=== PATIENT | male | born 1975 | race Caucasian/White ===

== ENCOUNTER 2018-03-26 23:13 | Emergency (ER) | payer OTHER ==
[~2018-03-26 23:13] MED LIST: AZI250 PO; DICL-195 PO; GUAI480S48 PO; IBU800 PO; NO ROUTINE MEDS; OXYC-865 PO
--- NOTE | 2018-03-26 23:24 | ER Report ---
History and Physical Time Seen By MD: 23:22 HPI/ROS CHIEF COMPLAINT: testicular pain HISTORY OF PRESENT ILLNESS: This is a 42 year old male. He is having severe testicular pain, sudden onset, right side, was lying down trying to go to sleep. Nothing makes the pain worse, but nothing makes it better as well. Feels like he needs to urinate, but cannot go. He has had normal bowels. No history of urinary, kidney or testicular problems in the past. No fevers or chills. No abdominal pain. No shortness of breath or chest pain. Allergies: Coded Allergies: No Known Allergies (Verified Allergy, Mild, 12/12/07) Home Meds Active Scripts Ondansetron (ZOFRAN ODT) 4 Mg Tab.rapdis, 4 MG PO Q6H Y for NAUSEA/VOMITING, # 20 TAB.RUDY 0 Refills Prov:KEMAR MARSH MD 03/27/18 Ketorolac Tromethamine (KETOROLAC TROMETHAMINE) 10 Mg Tab, 10 MG PO Q6H Y for PAIN, #12 TAB 0 Refills Prov:KEMAR MARSH MD 03/27/18 Hydrocodone Bit/Acetaminophen (HYDROCODON-ACETAMINOPHEN 5-325) 1 Each Tablet, 1 EACH PO Q4H Y for PAIN, #12 TAB 0 Refills Prov:KEMAR MARSH MD 03/27/18 Tamsulosin Hcl (FLOMAX) 0.4 Mg Cap.er.24h, 0.4 MG PO QDAY, #14 CAP 0 Refills Prov:KEMAR MARSH MD 03/27/18 Reported Medications Cholecalciferol (Vitamin D3) (VITAMIN D3) 1,000 Unit Tablet, 5000 UNIT PO, TAB 03/26/18 [No Routine Meds] No Conflict Check 12/12/07 Discontinued Scripts Diclofenac Sodium (DICLOFENAC SODIUM) 75 Mg Tablet.dr, 75 MG PO TID, #30 TAB TAKE 1 TABLET BY MOUTH 3 TIMES A DAY Prov:SHIRLEY ROGERS MD 10/18/13 Oxycodone Hcl/Acetaminophen (PERCOCET 5-325 MG TABLET) 1 Each Tablet, 1 EACH PO Q4-6H Y for pain, #30 Prov:SHIRLEY ROGERS MD 10/18/13 Reviewed Nurses Notes: Yes Hx Smoking: Yes Hx Substance Use Disorder: No Hx Alcohol Use: No Constitutional Vital Sign - Last 24 Hours 03/26/18 03/26/18 03/27/18 03/27/18 23:20 23:22 00:06 00:13 Temp 98.4 Pulse 70 82 Resp 18 B/P (MAP) 137/117 (124) 137/117 164/126 (139) Pulse Ox 97 90 O2 Delivery Room Air 03/27/18 03/27/18 03/27/18 03/27/18 00:18 00:30 00:48 01:00 Pulse ??? B/P (MAP) 161/103 (122) 173/111 (131) Pulse Ox 96 91 03/27/18 03/27/18 03/27/18 01:30 02:00 02:05 Pulse 76 B/P (MAP) 158/103 (121) 163/111 (128) Pulse Ox 98 Physical Exam General Appearance: The patient is alert. Acute distress due to pain. Eyes: Pupils are equal, round. No pallor, injection or icterus. ENT: Mucous membranes are moist. Respiratory: Lungs are clear to auscultation. Cardiovascular: Regular rate and rhythm. No murmurs, gallops or rubs. Gastrointestinal: Abdomen is soft, nontender. Nondistended. Normal active bowel sounds. No costovertebral angle tenderness with percussion. Genitourinary: Normal testicles, right side seems to ride a little high. No tenderness with palpation. No evidence of bulging either direct or indirect. No masses. Neurological: Alert and oriented x3. No focal neurologic deficits Skin: Warm and dry. No rashes. DIFFERENTIAL DIAGNOSIS: After history and physical exam, differential diagnosis was considered for testicular pain on the right side, could be torsion or other testicular problem or possible kidney stone or infectious process. Medical Decision Making Data Points Result Diagram: 03/26/18 2334 03/26/18 2334 Laboratory Hematology Test 03/26/18 23:34 03/27/18 00:09 Red Blood Count 4.69 M/uL (4.00-5.60) Mean Corpuscular Volume 89.3 fL (80.0-96.0) Mean Corpuscular Hemoglobin 31.7 pg (26.0-33.0) Mean Corpuscular Hemoglobin Concent 35.5 g/dL (32.0-36.0) Red Cell Distribution Width 13.2 % (11.5-14.5) Mean Platelet Volume 7.8 fL (7.2-11.1) Neutrophils (%) (Auto) 63.8 % (39.4-72.5) Lymphocytes (%) (Auto) 24.2 % (17.6-49.6) Monocytes (%) (Auto) 9.7 % (4.1-12.4) Eosinophils (%) (Auto) 1.7 % (0.4-6.7) Basophils (%) (Auto) 0.6 % (0.3-1.4) Nucleated RBC Relative Count (auto) 0.0 /100WBC Neutrophils # (Auto) 4.5 K/uL (2.0-7.4) Lymphocytes # (Auto) 1.7 K/uL (1.3-3.6) Monocytes # (Auto) 0.7 K/uL (0.3-1.0) Eosinophils # (Auto) 0.1 K/uL (0.0-0.5) Basophils # (Auto) 0.0 K/uL (0.0-0.1) Nucleated RBC Absolute Count (auto) 0.00 K/uL Erythrocyte Sedimentation Rate 3 mm/HOUR (0-15) Sodium Level 142 mmol/L (137-145) Potassium Level 4.0 mmol/L (3.5-5.0) Chloride Level 102 mmol/L (98-107) Carbon Dioxide Level 28 mmol/L (22-30) Blood Urea Nitrogen 19 mg/dl (9-21) Creatinine 1.30 mg/dl (0.66-1.25) Glomerular Filtration Rate Calc > 60.0 Random Glucose 149 mg/dl (75-110) Calcium Level 10.6 mg/dl (8.4-10.2) Total Bilirubin 0.4 mg/dl (0.2-1.3) Aspartate Amino Transf (AST/SGOT) 26 U/L (0-35) Alanine Aminotransferase (ALT/SGPT) 57 U/L (0-56) Alkaline Phosphatase 70 U/L (0-126) C-Reactive Protein 0.7 mg/dl (<1.0) Total Protein 7.5 gm/dl (6.3-8.2) Albumin 4.3 g/dl (3.5-5.0) Urine Color Yellow Urine Clarity Slightly-cloudy Urine pH 5.0 pH (4.8-9.5) Urine Specific Gillespie 1.026 Urine Protein Negative mg/dL (NEGATIVE) Urine Glucose (UA) Negative mg/dL (NEGATIVE) Urine Ketones Negative mg/dL (NEGATIVE) Urine Blood Small (NEGATIVE) Urine Nitrite Negative (NEGATIVE) Urine Bilirubin Negative (NEGATIVE) Urine Urobilinogen Negative mg/dL (0.2-1.9) Urine Leukocyte Esterase Negative (NEGATIVE) Urine RBC 14 /HPF (0-2/HPF) Urine WBC 5 /HPF (0-5/HPF) Urine Squamous Epithelial Cells Moderate /LPF (</=FEW) Urine Bacteria Negative /HPF (NONE-FEW) Urine Mucus Few /HPF (NONE-FEW) Chemistry Test 03/26/18 23:34 03/27/18 00:09 White Blood Count 7.0 k/uL (4.5-11.0) Red Blood Count 4.69 M/uL (4.00-5.60) Hemoglobin 14.9 g/dL (14.0-18.0) Hematocrit 41.9 % (42.0-52.0) Mean Corpuscular Volume 89.3 fL (80.0-96.0) Mean Corpuscular Hemoglobin 31.7 pg (26.0-33.0) Mean Corpuscular Hemoglobin Concent 35.5 g/dL (32.0-36.0) Red Cell Distribution Width 13.2 % (11.5-14.5) Platelet Count 166 K/uL (150-450) Mean Platelet Volume 7.8 fL (7.2-11.1) Neutrophils (%) (Auto) 63.8 % (39.4-72.5) Lymphocytes (%) (Auto) 24.2 % (17.6-49.6) Monocytes (%) (Auto) 9.7 % (4.1-12.4) Eosinophils (%) (Auto) 1.7 % (0.4-6.7) Basophils (%) (Auto) 0.6 % (0.3-1.4) Nucleated RBC Relative Count (auto) 0.0 /100WBC Neutrophils # (Auto) 4.5 K/uL (2.0-7.4) Lymphocytes # (Auto) 1.7 K/uL (1.3-3.6) Monocytes # (Auto) 0.7 K/uL (0.3-1.0) Eosinophils # (Auto) 0.1 K/uL (0.0-0.5) Basophils # (Auto) 0.0 K/uL (0.0-0.1) Nucleated RBC Absolute Count (auto) 0.00 K/uL Erythrocyte Sedimentation Rate 3 mm/HOUR (0-15) Glomerular Filtration Rate Calc > 60.0 Calcium Level 10.6 mg/dl (8.4-10.2) Total Bilirubin 0.4 mg/dl (0.2-1.3) Aspartate Amino Transf (AST/SGOT) 26 U/L (0-35) Alanine Aminotransferase (ALT/SGPT) 57 U/L (0-56) Alkaline Phosphatase 70 U/L (0-126) C-Reactive Protein 0.7 mg/dl (<1.0) Total Protein 7.5 gm/dl (6.3-8.2) Albumin 4.3 g/dl (3.5-5.0) Urine Color Yellow Urine Clarity Slightly-cloudy Urine pH 5.0 pH (4.8-9.5) Urine Specific Gillespie 1.026 Urine Protein Negative mg/dL (NEGATIVE) Urine Glucose (UA) Negative mg/dL (NEGATIVE) Urine Ketones Negative mg/dL (NEGATIVE) Urine Blood Small (NEGATIVE) Urine Nitrite Negative (NEGATIVE) Urine Bilirubin Negative (NEGATIVE) Urine Urobilinogen Negative mg/dL (0.2-1.9) Urine Leukocyte Esterase Negative (NEGATIVE) Urine RBC 14 /HPF (0-2/HPF) Urine WBC 5 /HPF (0-5/HPF) Urine Squamous Epithelial Cells Moderate /LPF (</=FEW) Urine Bacteria Negative /HPF (NONE-FEW) Urine Mucus Few /HPF (NONE-FEW) Urinalysis Test 03/27/18 00:09 Urine Color Yellow Urine Clarity Slightly-cloudy Urine pH 5.0 pH (4.8-9.5) Urine Specific Gillespie 1.026 Urine Protein Negative mg/dL (NEGATIVE) Urine Glucose (UA) Negative mg/dL (NEGATIVE) Urine Ketones Negative mg/dL (NEGATIVE) Urine Blood Small (NEGATIVE) Urine Nitrite Negative (NEGATIVE) Urine Bilirubin Negative (NEGATIVE) Urine Urobilinogen Negative mg/dL (0.2-1.9) Urine Leukocyte Esterase Negative (NEGATIVE) Urine RBC 14 /HPF (0-2/HPF) Urine WBC 5 /HPF (0-5/HPF) Urine Squamous Epithelial Cells Moderate /LPF (</=FEW) Urine Bacteria Negative /HPF (NONE-FEW) Urine Mucus Few /HPF (NONE-FEW) EKG/Imaging Imaging Ultrasound of the scrotum and testicles: Indication: Right-sided pain. Technique: Duplex Doppler and color Doppler imaging were performed. Comparison: None. Testicles: The right testicle measures 4.1 x 3.0 x 2.6 cm. The left testicle measures 4.6 x 2.8 x 2.2 cm. There is no evidence of testicular nodule, calcification, or cyst. Doppler images demonstrate normal flow signals. There are no signs of testicular torsion. Epididymal structures: A small cyst is present in the right epididymal head. The epididymal structures are otherwise unremarkable. Varicocele: A varicocele is present on the left. Hydrocele: None seen. Impression: No acute findings. There are no signs of testicular torsion. Report Dictated By: Kyle Valerio MD at 03/27/2018 12:16 AM COMPUTED TOMOGRAPHY ABDOMEN AND PELVIS WITH INTRAVENOUS CONTRAST DATE OF EXAM: 03/27/2018 12:47 AM INDICATION: Testicular pain. COMPARISON: Scrotal ultrasound 03/26/2018. TECHNIQUE: Contrast enhanced abdomen and pelvis CT performed during the injection of 75 ml of Isovue 370. Sagittal and coronal reconstructions were performed. One of the following dose optimization techniques was utilized in the performance of this exam: Automated exposure control; adjustment of the mA and/or kV according to the patient's size; or use of an iterative reconstruction technique. Specific details can be referenced in the facility's radiology CT exam operational policy. FINDINGS: Lung bases: Mild atelectasis. Liver and hepatic vasculature: No acute abnormality or focal lesion. Gallbladder and bile ducts: Normal. Spleen: Mildly enlarged. Pancreas: Normal. Adrenals: Normal. Kidneys, ureters and bladder: There is a 2 mm calculus at the right ureterovesicular junction with associated mild hydronephrosis/hydroureter and delayed nephrogram. Left kidney and ureter are grossly normal. Urinary bladder is decompressed. Retroperitoneum and aorta: Normal. GI tract, mesentery and peritoneum: No acute abnormality. Normal appendix. Prostate and seminal vesicles: Normal. Bones and soft tissues: No acute abnormality or suspicious lesion. Small fat- containing left inguinal hernia. IMPRESSION: 2 mm calculus at the right ureterovesicular junction with associated mild hydronephrosis/hydroureter and delayed nephrogram. Report Dictated By: Angel Melchor MD at 03/27/2018 1:35 AM ED Course/Re-evaluation Clinical Indication for ER IV: Hydration, IV Access ED Course Initial evaluation was done. Testicular ultrasound ordered. Morphine 4mg IV given for pain. Zofran for nausea. 1000cc NS given. Ultrasound negative. CT scan done. Toradol 30mg IV. Pain improved, but not completely gone. CT shows 2mm stone at UVJ. Discussed with patient. See instructions below. Decision to Disposition Date: Mar 27, 2018 Decision to Disposition Time: 02:11 Depart Departure Latest Vital Signs Vital Signs Date Time Temp Pulse Resp B/P (MAP) Pulse Ox O2 Delivery O2 Flow Rate FiO2 03/27/18 02:05 76 98 03/27/18 02:00 163/111 (128) 03/26/18 23:22 98.4 18 Room Air Impression: Primary Impression: Kidney stone Condition: Improved Disposition: HOME OR SELF-CARE New Scripts Ondansetron (ZOFRAN ODT) 4 Mg Tab.rapdis 4 MG PO Q6H Y for NAUSEA/VOMITING, #20 TAB.RUDY 0 Refills Prov: KEMAR MARSH MD 03/27/18 Ketorolac Tromethamine (KETOROLAC TROMETHAMINE) 10 Mg Tab 10 MG PO Q6H Y for PAIN, #12 TAB 0 Refills Prov: KEMAR MARSH MD 03/27/18 Hydrocodone Bit/Acetaminophen (HYDROCODON-ACETAMINOPHEN 5-325) 1 Each Tablet 1 EACH PO Q4H Y for PAIN, #12 TAB 0 Refills Prov: KEMAR MARSH MD 03/27/18 Tamsulosin Hcl (FLOMAX) 0.4 Mg Cap.er.24h 0.4 MG PO QDAY, #14 CAP 0 Refills Prov: KEMAR MARSH MD 03/27/18 Patient Instructions: Kidney Stones (ED) Additional Instructions: Rest and increase fluid intake. For pain you can use: Toradol 10mg, one every 6 hours as needed for pain. Lortab 5/325, take 1-2 every 4 hours as needed for pain. For Nausea: Zofran 4mg, one every 4-6 hours as needed for nausea. To help the stone to pass and to help decrease swelling and pain in the urinary system after the stone passes, we recommend using Flomax 0.4mg one daily for the next couple of weeks. KEMAR MARSH MD Mar 26, 2018 23:24
[2018-03-26] MEDS ORDERED: CHOL10005 PO (23:29)
[2018-03-26] MEDS ORDERED: NS(*) 0.9% 1000 ML BAG 1,000 ML IV ONE (23:30)
[2018-03-26] MEDS ORDERED: MORPHINE 4 MG/ML SDV IVP ONE (23:30)
[2018-03-26] MEDS ORDERED: ONDANSETRON 4 MG/2 ML VIAL IVP ONE (23:30)
[2018-03-26 23:42] LABS: PLATELET COUNT, AUTOMATED 166 K/uL (150-450)
--- NOTE | 2018-03-27 00:25 | RADIOLOGY IMAGING REPORT ---
FACILITY[place] [facility] [place] NAME: Tomas Alcocer : 1975 MR: [id number] V: [id number] EXAM DATE: ORDERING PHYSICIAN: KEMAR MARSH TECHNOLOGIST: Location: [facility] - [place] Patient: Tomas Alcocer : 1975 Visit/Account:[id number] Date of Sevice: 03/26/2018 Ultrasound of the scrotum and testicles: Indication: Right-sided pain. Technique: Duplex Doppler and color Doppler imaging were performed. Comparison: None. Testicles: The right testicle measures 4.1 x 3.0 x 2.6 cm. The left testicle measures 4.6 x 2.8 x 2.2 cm. There is no evidence of testicular nodule, calcification, or cyst. Doppler images demonstrate no rmal flow signals. There are no signs of testicular torsion. Epididymal structures: A small cyst is present in the right epididymal head. The epididymal structure s are otherwise unremarkable. Varicocele: A varicocele is present on the left. Hydrocele: None seen. Impression: No acute findings. There are no signs of testicular torsion. Report Dictated By: Kyle Valerio MD at 03/27/2018 12:16 AM Report E-Signed By: Kyle Valerio MD at 03/27/2018 12:20 AM WSN:[id number]
[2018-03-27] MEDS ORDERED: KETOROLAC 30 MG/ML VIAL IVP ONE (00:50)
[2018-03-27] MEDS ORDERED: IOPAMIDOL 76% 75 ML INFUS BTL 75 ML ONE (01:02)
--- NOTE | 2018-03-27 01:47 | RADIOLOGY IMAGING REPORT ---
FAC[place] [facility] [place] NAME: Tomas Alcocer : 1975 MR: [id number] V: [id number] EXAM DATE: ORDERING PHYSICIAN: KEMAR MARSH TECHNOLOGIST: Location: [facility] - [place] Patient: Tomas Alcocer : 1975 Visit/Account:[id number] Date of Sevice: 03/27/2018 COMPUTED TOMOGRAPHY ABDOMEN AND PELVIS WITH INTRAVENOUS CONTRAST DATE OF EXAM: 03/27/2018 12:47 AM INDICATION: Testicular pain. COMPARISON: Scrotal ultrasound 03/26/2018. TECHNIQUE: Contrast enhanced abdomen and pelvis CT performed during the injection of 75 ml of Isovue 370. Sagittal and coronal reconstructions were performed. One of the following dose optimization te chshelbi was utilized in the performance of this exam: Automated exposure control; adjustment of the mA and/or kV according to the patient's size; or use of an iterative reconstruction technique. Spec [facility] details can be referenced in the facility's radiology CT exam operational policy. FINDINGS: Lung bases: Mild atelectasis. Liver and hepatic vasculature: No acute abnormality or focal lesion. Gallbladder and bile ducts: Normal. Spleen: Mildly enlarged. Pancreas: Normal. Adrenals: Normal. Kidneys, ureters and bladder: There is a 2 mm calculus at the right ureterovesicular junction with a ssociated mild hydronephrosis/hydroureter and delayed nephrogram. Left kidney and ureter are grossly normal. Urinary bladder is decompressed. Retroperitoneum and aorta: Normal. GI tract, mesentery and peritoneum: No acute abnormality. Normal appendix. Prostate and seminal vesicles: Normal. Bones and soft tissues: No acute abnormality or suspicious lesion. Small fat-containing left inguin al hernia. IMPRESSION: 2 mm calculus at the right ureterovesicular junction with associated mild hydronephrosis/ hydroureter and delayed nephrogram. Report Dictated By: Angel Melchor MD at 03/27/2018 1:35 AM Report E-Signed By: Angel Melchor MD at 03/27/2018 1:43 AM WSN:[id number]
[2018-03-27 02:00] VITALS: BP 163/111
[2018-03-27] MEDS ORDERED: TAMSULOSIN HCL 0.4 MG CAP PO ONE (02:10)
[2018-03-27] MEDS ORDERED: ONDANSETRON 4 MG ODT TH SL ONE (02:10)
[2018-03-27] MEDS ORDERED: ACET/HYDROC 5/325MG TH ER ONLY 2 TAB/BOTTLE PO ONE (02:10)
[2018-03-27] MEDS ORDERED: KETOROLAC TROM 10 MG TAB TH PO ONE (02:10)
[2018-03-27] MEDS ORDERED: ONDA4TAB PO (02:12)
[2018-03-27] MEDS ORDERED: KET10 PO (02:12)
[2018-03-27] MEDS ORDERED: TAMS0.4C25 PO (02:12)
[2018-03-27] MEDS ORDERED: LOR5/325 PO (02:12)
== END 2018-03-27 02:29 | disposition home or self-care (01) ==
LOC: ER 23:20
DX: N20.0 Calculus of kidney (principal); N13.30 Unspecified hydronephrosis; N13.4 Hydroureter
CPT/HCPCS: 74177; 76870; 81001; 85025; 85651; 86140; 96361; 96374; 96375; 99284; J1885; J2270; J2405; J7030; Q9967; S0119; 82040; 82247; 82310; 82374; 82435; 82565; 82947; 84075; 84132; 84155; 84295; 84450; 84460; 84520